=== PATIENT | male | born 1960 ===

== ENCOUNTER 2021-09-18 16:04 | Emergency (ER) | payer SELFPAY ==
[2021-09-18] MEDS ORDERED: MVI, Adult with Vitamin K 10 ML, Thiamine 100 MG, Folic Acid 1 MG in Lactated Ringers 1... IV ONE ×4 (16:19)
[2021-09-18 17:14] LABS: CORONAVIRUS COVID-19 NAA NEGATIVE (NEGATIVE); RESPIRATORY SYNCYTIAL VIR NAA NEGATIVE (NEGATIVE)
[2021-09-18 17:37] LABS: PTT,PARTIAL THROMBOPLSTIN TIME 21.2 SEC (22.0-34.0)
[2021-09-18] MEDS ORDERED: Pantoprazole 40 MG Vial IVPUSH ONE (17:43)
[2021-09-18] MEDS ORDERED: Ondansetron 4 MG/2 ML SDV IV ONE ×2 (17:43→18:39)
[2021-09-18 17:52] LABS: ANION GAP 20.1 mEq/L (7-13); CHLORIDE,CL 103 mmol/L (98-107); SODIUM,NA 137 mmol/L (136-145)
[2021-09-18 17:56] LABS: ESTIMATED GFR 57 mL/min (>=60)
[2021-09-18] MEDS ORDERED: Octreotide 100 MCG/ML SDV IVPUSH ONE (18:23)
[2021-09-18] MEDS ORDERED: Octreotide 100 MCG in Sodium Chloride 0.9% 99 ML IV SCH (18:30)
[2021-09-18] MEDS ORDERED: Pantoprazole 40 MG in Sodium Chloride 0.9% 100 ML IV SCH (18:30)
[2021-09-18] MEDS ORDERED: Sodium Chloride 0.9% 1,000 ML IV ONE (18:39)
[2021-09-18 20:23] LABS: AMPHETAMINES,URINE NEGATIVE (NEGATIVE); BARBITURATES,URINE NEGATIVE (NEGATIVE); BENZODIAZEPINE,URINE NEGATIVE (NEGATIVE); MDMA (ECSTASY), URINE NEGATIVE (NEGATIVE); METHADONE,URINE NEGATIVE (NEGATIVE); METHAMPHETAMINES,URINE NEGATIVE (NEGATIVE); OPIATES,URINE NEGATIVE (NEGATIVE); OXYCODONE,URINE NEGATIVE (NEGATIVE); PHENCYCLIDINE,URINE NEGATIVE (NEGATIVE); TCA,URINE NEGATIVE (NEGATIVE)
== END 2021-09-18 19:38 ==
LOC: DL.ED 16:04
DX: R41.0 Disorientation, unspecified (principal); K92.2 Gastrointestinal hemorrhage, unspecified; F10.10 Alcohol abuse, uncomplicated; Z20.822 Contact with and (suspected) exposure to COVID-19
CPT/HCPCS: 0241U; 36415; 70450; 71045; 80053; 80305-QW; 80307; 81001; 82009; 82140; 82150; 82271; 82550; 83605; 83690; 83735; 84100; 84443; 84484; 85025; 85610; 85730; 87040; 93005; 93010; 96365; 96366; 96367; 96368; 96375; 96376; 99285; 99285-25; C9113; J2354-JA; J2405; J3411; J3490; J7030; J7120